=== PATIENT | male | born 1970 | race Caucasian/White ===

== ENCOUNTER 2017-09-13 09:52 | Inpatient (IN) | payer MEDICAID ==
[2017-09-13] VITALS (42 sets, daily range): BP systolic 125–204; BP diastolic 63–126
[~2017-09-13] VITALS: Ht 175.3 cm; Wt 66.3 kg
[2017-09-13] MEDS ORDERED: MIDAZOLAM HCL 2 MG/2 ML VIAL IV STA (11:22)
[2017-09-13] MEDS ORDERED: KETOROLAC TROMETHAMINE 30 MG/ML VIAL IV STA (11:22)
[2017-09-13] MEDS ORDERED: MULTIVITAMINS- 12 INJECTION 10 ML, FOLIC ACID MDV 5 MG, THIAMINE HCL INJ 100 MG in SODI... IV STA (12:08)
[2017-09-13] MEDS: MORPHINE SULFATE 2 MG/ML SYR IV PRN ×2 (13:26→19:55)
[2017-09-13] MEDS: NICOTINE 21 MG/EA PATCH TOP SCH (15:04)
[2017-09-13] MEDS: CLONIDINE HCL 0.1 MG TAB PO SCH ×2 (15:04→22:03)
[2017-09-13] MEDS: MULTIVITAMINS- 12 INJECTION 10 ML, FOLIC ACID MDV 5 MG, THIAMINE HCL INJ 100 MG in SODI... IV SCH ×2 (19:15→20:53)
[2017-09-13 19:24] LABS: CLARITY,URINE SL CLOUDY (CLEAR); COLOR,URINE STRAW (YELLOW); LEUKOCYTE ESTERASE ,URINE NEGATIVE (NEGATIVE); NITRITE,URINE NEGATIVE (NEGATIVE); PROTEIN,URINE DIPSTICK 2+ (NEGATIVE)
[2017-09-13 19:25] LABS: AMPHETAMINES SCREEN,URINE NEGATIVE (NEGATIVE); BENZODIAZEPINES SCREEN,URINE NEGATIVE (NEGATIVE); BILIRUBIN,URINE 1+ (NEGATIVE); KETONES,URINE 2+ (NEGATIVE); PHENCYCLIDINE SCREEN,URINE NEGATIVE (NEGATIVE); URINE UROBILINOGEN 0.2 mg/dL (0.2 - 1)
[2017-09-13 19:49] LABS: BACTERIA,URINE FEW /HPF; EPITHELIAL CELLS,URINE FEW /LPF; RBC,URINE >50 /HPF (0-5)
[2017-09-13 19:50] LABS: MUCUS,URINE MANY (RARE)
[2017-09-13] MEDS: MIDAZOLAM HCL 2 MG/2 ML VIAL IV PRN (22:03)
[2017-09-14] VITALS (38 sets, daily range): BP systolic 111–174; BP diastolic 73–124
[2017-09-14] MEDS: MORPHINE SULFATE 2 MG/ML SYR IV PRN (02:05)
[2017-09-14] MEDS: MULTIVITAMINS- 12 INJECTION 10 ML, FOLIC ACID MDV 5 MG, THIAMINE HCL INJ 100 MG in SODI... IV SCH ×3 (03:13→17:11)
[2017-09-14 04:28] LABS: BASOPHILS % 0.3 % (0.0-1.0); EOSINOPHILS # (AUTO) 0.1 (0.0-0.4); HEMATOCRIT 34.2 % (38.2-49.6); HEMOGLOBIN 12.2 g/dL (14.0-18.0); LYMPHOCYTES # (AUTO) 0.8 (1.0-3.2); LYMPHOCYTES % 12.4 % (18.0-39.1); MEAN CORPUSCULAR HEMOGLOBIN 36.6 pg (28-32); MEAN CORPUSCULAR HGB CONC 35.7 g/dL (31-35); MEAN CORPUSCULAR VOLUME 102.7 fL (81-99); MONOCYTES # (AUTO) 0.5 (0.2-0.8); MONOCYTES % 7.5 % (4.4-11.3); NEUTROPHILS # (AUTO) 5.2 (2.1-6.9); NEUTROPHILS % 78.5 % (38.7-80.0); PLATELET COUNT 65 x10e3/uL (140-360); RED BLOOD COUNT 3.33 x10e6/uL (4.3-5.7); RED CELL DISTRIBUTION WIDTH 13.2 % (11.7-14.4)
[2017-09-14 04:48] LABS: ALANINE AMINOTRANSFERASE 56 IU/L (0-55); ALBUMIN 3.9 g/dL (3.5-5.0); ALBUMIN/GLOBULIN RATIO 1.3 (0.8-2.0); ALKALINE PHOSPHATASE 108 IU/L (40-150); ANION GAP 14.5 mmol/L (8-16); BLOOD UREA NITROGEN 6 mg/dL (7-26); BUN/CREATININE RATIO 9 (6-25); CARBON DIOXIDE 25 mmol/L (22-29); CHLORIDE 96 mmol/L (98-107); CREATININE, SERUM 0.66 mg/dL (0.72-1.25); EST GLOMERULAR FILTRATION RATE > 60 ML/MIN (60-); GLUCOSE 96 mg/dL (74-118); MAGNESIUM 2.1 MG/DL (1.3-2.1); PHOSPHORUS 1.8 MG/DL (2.3-4.7); POTASSIUM 3.5 mmol/L (3.5-5.1); SODIUM 132 mmol/L (136-145)
[2017-09-14] MEDS: CLONIDINE HCL 0.1 MG TAB PO SCH ×3 (06:28→21:54)
[2017-09-14] MEDS: MIDAZOLAM HCL 2 MG/2 ML VIAL IV PRN ×3 (09:00→19:07)
[2017-09-14] MEDS: CHLORDIAZEPOXIDE HCL 25 MG CAP PO PRN ×2 (10:40→17:36)
[2017-09-14] MEDS: NICOTINE 21 MG/EA PATCH TOP SCH (16:48)
[2017-09-14 18:08] LABS: FREE THYROXINE INDEX 1.3785 (1.4-3.8); THYROID STIMULATING HORMONE 2.47 uIU/mL (0.350-4.940)
--- NOTE | 2017-09-14 18:58 | Consultation ---
DATE OF CONSULTATION: September 14, 2017 NEUROLOGICAL CONSULTATION HISTORY OF PRESENT ILLNESS: At present, Mr. León is encephalopathic. History is obtained partially from the patient and review of the electronic medical records. Mr. León was admitted to the intensive care unit at [facility] from a [facility] on September 13, 2017, with symptoms of alcohol withdrawal. According to the electronic medical records, the patient was brought in to the [facility] by his best friend, Oscar, who reported the patient was "in DTs." Mr. León had recently consumed some quantity of alcohol for a prolonged period of time followed by abrupt cessation of alcohol consumption. While in the [facility], the patient was witnessed to have a generalized tonic clonic seizure. This prompted his admission to the intensive care unit at [facility] for further evaluation and treatment of his symptoms. While in the intensive care unit at [facility], Mr. León experienced an additional generalized tonic clonic seizure. Mr. León does not endorse a history of febrile seizures as a child. There is no known family history of seizure disorders. Mr. León does not endorse prior head trauma or central nervous system infection (i.e. meningitis, encephalitis). However, the patient does report experiencing seizures previously as a result of alcohol withdrawal. REVIEW OF SYSTEMS: Seizures. Otherwise, a 12 point review of systems is negative. PAST MEDICAL HISTORY: Substance abuse (alcohol). PAST SURGICAL HISTORY: None. PAST HOSPITALIZATIONS: Multiple prior hospitalizations for alcohol withdrawal. FAMILY HISTORY: Diabetes mellitus and multiple sclerosis. SOCIAL HISTORY: Mr. León is single. At present, he is unemployed. 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 The patient does endorse tobacco use without quantification. The patient does endorse alcohol use without quantification. Mr. León does not report current or prior recreational drug use. HOME MEDICATIONS: None. ALLERGIES: NO KNOWN DRUG ALLERGIES, NO KNOWN FOOD ALLERGIES, NO KNOWN ALLERGIES TO LATEX. NO KNOWN ALLERGIES TO IODINE OR OTHER CONTRAST MATERIALS. MR. LEÓN DOES REPORT AN ALLERGY TO BEES. PHYSICAL EXAMINATION: VITAL SIGNS: Height 69 inches, weight 130 pounds, BMI 19.2 kg per meter squared. Blood pressure 156/99 mmHg, pulse 93 beats per minute, respiratory rate 20 breaths per minute, oxygen saturation 97% on room air. GENERAL: The patient is awake and alert, appears tremulous. HEENT: Normocephalic, atraumatic. Pupils are equal, round, and reactive to light. Moist mucous membranes. NECK: Supple. No appreciable thyromegaly. No appreciable carotid bruits. CARDIOVASCULAR: S1, S2, regular rate and rhythm. No murmurs, rubs, or gallops. RESPIRATORY: Clear to auscultation bilaterally. No wheezes, rhonchi, or rales. EXTREMITIES: The skin is warm and dry. No clubbing, cyanosis, or edema. The posterior tibial and dorsalis pedis pulses are 2+ and symmetric. SKIN: Multiple ecchymoses and abrasions over the bilateral legs. NEUROLOGIC Memory/Attention: The patient is awake and alert, oriented to person, place (city only), time (month only), and situation. Cranial Nerves: Cranial nerve 1--Not tested. Cranial nerve 2, 3, 4, and 6--Pupils are equal and round, react briskly to light (from 4 mm to 2 mm). Extraocular movements intact. No nystagmus. Cranial nerve 5--Sensation to light touch is intact in the bilateral V1 through V3 distributions. Strength of the temporalis and masseter muscles is within normal limits. Cranial nerve 7--The face is symmetric as are all facial movements. Strength is within normal limits. Cranial nerve 8--Hearing is intact to finger rub bilaterally. Cranial nerve 9, 10--The soft palate elevates equally and symmetrically. Cranial nerve 11--Normal strength of the bilateral sternocleidomastoid and trapezius muscles. Cranial nerve 12--The tongue protrudes midline and moves symmetrically from side to side. Strength: Bulk is normal. The patient moves all extremities equally and symmetrically. Tone is normal. DTRs: Deep tendon reflexes are 1+ and symmetric at the triceps, biceps, brachioradialis, patellas, and Achilles. Plantar responses are flexor bilaterally. Sensation: Sensation is grossly intact to light touch in both arms and both legs. Cerebellar: Unable to assess secondary to encephalopathy. Gait: Deferred. Speech: Spontaneous speech is mildly dysarthric without aphasia. Repetition is intact. Involuntary Movements: The patient fidgets throughout the encounter. Pronator Drift: As per motor exam. LABORATORY DATA: Sodium 132, potassium 3.5, chloride 96, carbon dioxide 25, anion gap 14.5, BUN 6, creatinine 0.66, estimated GFR greater than 60. BUN to creatinine ratio 9. Glucose 96, calcium 8.0, phosphorus 1.8, magnesium 2.1. Total bilirubin 1.4, AST 110, ALT 56, alkaline phosphatase 108. Total protein 6.8, albumin 3.9, globulin 2.9, albumin to globulin ratio 1.3. CBC with differential and platelets reveals a white blood cell count of 6.67 with 78.5% neutrophils, 12.4% lymphocytes, 7.5% monocytes, 1.0% eosinophils and 0.3% basophils. The hemoglobin and hematocrit are 12.2 and 34.2, respectively. The platelet count is 65. A urinalysis is significant for a specific gravity of 1.030, 2+ protein, 3+ glucose, 2+ ketones, 4+ blood, 1+ bilirubin, greater than 50 red blood cells, 11 to 20 white blood cells, few urine bacteria, fine granular casts 1 to 5, and urine mucus many. A urine drug screen was positive for opiates. Ethyl alcohol level was less than 10.0. ASSESSMENT AND PLAN: Mr. León is a 47-year-old man with past medical history significant for alcohol abuse, witnessed to have 2 to 3 generalized tonic clonic seizures in the setting of alcohol withdrawal. At present, the patient is encephalopathic. Otherwise his neurological examination is nonfocal. His laboratory data and other diagnostic studies have been reviewed and are documented as follows. RECOMMENDATIONS: 1. CT of the brain without contrast. An MRI of the brain without contrast is preferable to evaluate for structural anomalies predisposing the patient towards seizures. However, it is doubtful Mr. León would tolerate this study. 2. A routine EEG will be performed. 3. Routine blood work will be ordered to evaluate for other possible causes of encephalopathy. 4. Defer treatment of the remaining medical comorbidities to the primary and other services following the patient. Thank you for this consultation. I will continue to follow this patient while he remains in the hospital. Time spent: 70 minutes. Job#: [id number] EV MTDD
[2017-09-14] MEDS: ONDANSETRON HCL INJ 2 MG/ML VIAL IV PRN (19:07)
[2017-09-14] MEDS: MORPHINE SULFATE INJ 4 MG/ML INJ IV PRN ×2 (19:07→22:59)
--- NOTE | 2017-09-14 20:38 | Diagnostic Imaging Report ---
Examination: CT head without contrast Clinical Indication: Seizures. Technique: Transaxial noncontrast images from the skull base through the vertex were obtained. Sagittal and coronal reformatted images were done. Comparison: None. Findings: Scalp: No abnormalities. Bones: Intact. No fractures. No blastic or lytic lesions. Brain sulci: Mild volume loss for patient's age particularly of the bilateral cerebellar hemispheres. Ventricles: No hydrocephalus. Extra-axial space: No abnormalities. Parenchyma: A chronic lacunar infarct versus dilated perivascular space of the inferior left putamen. There are mild confluent areas of low-attenuation within subcortical and periventricular white matter, nonspecific, but could represent microvascular ischemic disease. No masses, hemorrhage, or acute or chronic cortical based vascular insults. Suprasellar region: No abnormalities. Craniocervical junction: The foramen magnum is patent. No Chiari one malformation. Impression: 1. No acute intracranial finding. 2. Mild chronic microvascular ischemic change and mild volume of the brain, specifically of the bilateral cerebellum, which can be seen in chronic alcohol intake. 3. A chronic lacunar infarct versus dilated perivascular space of the inferior left putamen. Signed by: Dr. Monika Coronado M.D. on 09/14/2017 8:35 PM
[2017-09-14] MEDS: LORAZEPAM INJ 2 MG/ML VIAL IV PRN ×2 (21:54→23:40)
[2017-09-15] VITALS (62 sets, daily range): BP systolic 106–186; BP diastolic 74–172
[2017-09-15] MEDS: MULTIVITAMINS- 12 INJECTION 10 ML, FOLIC ACID MDV 5 MG, THIAMINE HCL INJ 100 MG in SODI... IV SCH ×4 (00:53→21:36)
[2017-09-15] MEDS: LORAZEPAM INJ 2 MG/ML VIAL IV PRN ×7 (01:43→19:45)
[2017-09-15] MEDS: MORPHINE SULFATE INJ 4 MG/ML INJ IV PRN ×5 (03:33→23:50)
[2017-09-15 04:36] LABS: BASOPHILS % 0.3 % (0.0-1.0); EOSINOPHILS % 0.3 % (0.0-6.0); HEMOGLOBIN 11.3 g/dL (14.0-18.0); LYMPHOCYTES # (AUTO) 0.6 (1.0-3.2); MEAN CORPUSCULAR HEMOGLOBIN 36.7 pg (28-32); MEAN CORPUSCULAR HGB CONC 35.3 g/dL (31-35); MEAN CORPUSCULAR VOLUME 103.9 fL (81-99); MONOCYTES # (AUTO) 0.9 (0.2-0.8); MONOCYTES % 12.1 % (4.4-11.3); NEUTROPHILS % 78.8 % (38.7-80.0); PLATELET COUNT 75 x10e3/uL (140-360); RED BLOOD COUNT 3.08 x10e6/uL (4.3-5.7); RED CELL DISTRIBUTION WIDTH 13.2 % (11.7-14.4)
[2017-09-15 04:48] LABS: INR 1.11; PROTHROMBIN TIME 13.5 seconds (11.9-14.5)
[2017-09-15 04:49] LABS: PARTIAL THROMBOPLASTIN TIME 33.1 seconds (23.8-35.5)
[2017-09-15 04:55] LABS: ANION GAP 19.5 mmol/L (8-16); BLOOD UREA NITROGEN 5 mg/dL (7-26); BUN/CREATININE RATIO 7 (6-25); CALCIUM 8.3 mg/dL (8.4-10.2); CARBON DIOXIDE 21 mmol/L (22-29); CHLORIDE 103 mmol/L (98-107); CREATININE, SERUM 0.73 mg/dL (0.72-1.25); EST GLOMERULAR FILTRATION RATE > 60 ML/MIN (60-); GLUCOSE 95 mg/dL (74-118); POTASSIUM 3.5 mmol/L (3.5-5.1); SODIUM 140 mmol/L (136-145)
[2017-09-15] MEDS: CLONIDINE HCL 0.1 MG TAB PO SCH ×3 (06:16→21:36)
[2017-09-15] MEDS: CHLORDIAZEPOXIDE HCL 25 MG CAP PO SCH ×3 (06:35→17:25)
[2017-09-15] MEDS: METOPROLOL TARTRATE INJ 1 MG/ML VIAL IV PRN (08:20)
[2017-09-15] MEDS ORDERED: HALOPERIDOL LACTATE 5 MG/ML VIAL IM PRN (14:30)
[2017-09-15] MEDS ORDERED: CHLORDIAZEPOXIDE HCL 25 MG CAP PO PRN (14:30)
[2017-09-15] MEDS: NICOTINE 21 MG/EA PATCH TOP SCH (17:25)
[2017-09-15] MEDS: QUETIAPINE FUMARATE 25 MG TAB PO PRN (17:25)
[2017-09-15] MEDS: BALSAM PERU/CASTOR OIL 60 GM OINT...G. TP SCH (21:36)
[2017-09-16] VITALS (34 sets, daily range): BP systolic 120–179; BP diastolic 79–118
[2017-09-16] MEDS: MULTIVITAMINS- 12 INJECTION 10 ML, FOLIC ACID MDV 5 MG, THIAMINE HCL INJ 100 MG in SODI... IV SCH ×4 (02:49→21:35)
[2017-09-16] MEDS: LORAZEPAM INJ 2 MG/ML VIAL IV PRN (03:50)
[2017-09-16] MEDS: MORPHINE SULFATE INJ 4 MG/ML INJ IV PRN ×2 (03:50→21:54)
[2017-09-16 04:36] LABS: BASOPHILS % 0.5 % (0.0-1.0); EOSINOPHILS # (AUTO) 0.2 (0.0-0.4); EOSINOPHILS % 2.9 % (0.0-6.0); HEMATOCRIT 31.9 % (38.2-49.6); HEMOGLOBIN 10.8 g/dL (14.0-18.0); LYMPHOCYTES # (AUTO) 0.9 (1.0-3.2); LYMPHOCYTES % 16.5 % (18.0-39.1); MEAN CORPUSCULAR HEMOGLOBIN 36.6 pg (28-32); MEAN CORPUSCULAR HGB CONC 33.9 g/dL (31-35); MEAN CORPUSCULAR VOLUME 108.1 fL (81-99); MONOCYTES # (AUTO) 0.8 (0.2-0.8); MONOCYTES % 13.6 % (4.4-11.3); NEUTROPHILS # (AUTO) 3.6 (2.1-6.9); NEUTROPHILS % 66.1 % (38.7-80.0); PLATELET COUNT 83 x10e3/uL (140-360); RED BLOOD COUNT 2.95 x10e6/uL (4.3-5.7); RED CELL DISTRIBUTION WIDTH 13.3 % (11.7-14.4)
[2017-09-16 05:03] LABS: ALANINE AMINOTRANSFERASE 63 IU/L (0-55); ALBUMIN 3.6 g/dL (3.5-5.0); ALBUMIN/GLOBULIN RATIO 1.4 (0.8-2.0); ALKALINE PHOSPHATASE 82 IU/L (40-150); ANION GAP 25.7 mmol/L (8-16); BLOOD UREA NITROGEN 5 mg/dL (7-26); BUN/CREATININE RATIO 7 (6-25); CALCIUM 7.8 mg/dL (8.4-10.2); CARBON DIOXIDE 12 mmol/L (22-29); CHLORIDE 106 mmol/L (98-107); CREATININE, SERUM 0.75 mg/dL (0.72-1.25); EST GLOMERULAR FILTRATION RATE > 60 ML/MIN (60-); GLUCOSE 83 mg/dL (74-118); SODIUM 141 mmol/L (136-145)
[2017-09-16 05:13] LABS: POTASSIUM 2.7 mmol/L (3.5-5.1)
[2017-09-16] MEDS: CHLORDIAZEPOXIDE HCL 25 MG CAP PO SCH ×5 (05:35→22:03)
[2017-09-16] MEDS: CLONIDINE HCL 0.1 MG TAB PO SCH ×3 (05:35→21:49)
[2017-09-16] MEDS ORDERED: POTASSIUM CHLORIDE 20 MEQ TAB CR PO STA (05:53)
[2017-09-16] MEDS: POTASSIUM CHLORIDE 20 MEQ TAB CR PO SCH ×5 (06:12→23:06)
[2017-09-16] MEDS ORDERED: HYDROCHLOROTHIAZIDE 25 MG TAB ONE (07:24)
[2017-09-16] MEDS ORDERED: LOSARTAN POTASSIUM 100 MG TAB ONE (07:24)
[2017-09-16] MEDS: QUETIAPINE FUMARATE 25 MG TAB PO PRN (08:24)
--- NOTE | 2017-09-16 11:35 | Consultation ---
DATE OF CONSULTATION: September 15, 2017 PSYCHIATRIC CONSULTATION REASON FOR CONSULTATION: To evaluate the patient's alcohol withdrawal. HISTORY OF PRESENT ILLNESS: The patient is a 47-year-old male admitted to the hospital for alcohol intoxication and delirium. Psychiatric consultation is called to evaluate the patient and withdrawal. Per the medical record, the patient was admitted to the hospital with alcohol withdrawal. He suffered a seizure witnessed in the ER. Neurology is currently following the patient. Record does not show how much he has been drinking. No past psychiatric history is shown as well. On current evaluation, the patient is found to be in the ICU. He is in restraint. He is sleeping but arousable. He is confused. Does not know where he is but oriented to self. He has been combative. He states he drinks every day beer but unable to state the amount. The patient is unable to answer any other questions. As per nursing staff, the patient has been very agitated and combative, chasing staff. He was required to be placed in restraints. He again had a seizure while hospitalized. He has been getting p.r.n. Ativan IV and Librium scheduled. PAST PSYCHIATRIC HISTORY: Alcohol abuse, but unknown amount. Unknown if the patient has a history of psychiatric illness. FAMILY HISTORY: Unknown. SOCIAL HISTORY: Unknown. MENTAL STATUS EXAMINATION: The patient is a middle-aged, male. He is sleeping, but arousable. He is confused, agitated and in restraints. He is not able to answer questions, and assessment is limited. CURRENT MEDICATIONS 1. Clonidine. 2. Librium 25 mg p.o. q.6 h. scheduled. 3. Multivitamin. 4. Morphine p.r.n. IV. 5. Ativan p.r.n. IV. 6. Metoprolol. 7. Ondansetron. 8. Nicotine. CURRENT LABS: WBC 7.59, RBC 3.08, hemoglobin 11.3, hematocrit 32, platelets 75. Sodium 140, potassium 3.5, chloride 103, CO2 21, BUN 5, creatinine 0.73, AST 157, ALT 63. ASSESSMENT: Unspecified psychosis; alcohol dependency/withdrawal. PLAN 1. Continue Librium 25 mg p.o. q.6 h. scheduled. 2. Add Librium 25 mg p.o. q.6 h. p.r.n. for DT. 3. Continue Ativan 2 mg IV q.2 h. p.r.n. 4. Add Seroquel p.r.n. p.o. 5. Add Haldol p.r.n. IM. 6. Monitor for agitation and withdrawal. 7. Discussed with nursing staff. Thank you for this consultation. Dictated by: CHELY Dao Job#: [id number]
[2017-09-16] MEDS: BALSAM PERU/CASTOR OIL 60 GM OINT...G. TP SCH (17:00)
[2017-09-16] MEDS: NICOTINE 21 MG/EA PATCH TOP SCH (17:00)
--- NOTE | 2017-09-16 18:29 | Electroencephalogram ---
DATE OF STUDY: September 16, 2017 PROCEDURE: Electroencephalogram. REQUESTING PHYSICIAN: Dr. Lazara Larose PATIENT HISTORY: This 47-year-old man with history of alcohol abuse and seizures is having an EEG for evaluation of epileptiform activity. The patient is taking the following medications that might affect the EEG: Morphine, Lorazepam, chlordiazepoxide. TECHNIQUE: This is a routine, portable EEG, recorded digitally, using the international 10/20 electrode placement system, and done in the inpatient setting with the patient awake and drowsy. The EEG is technically limited because of muscle and electrical artifact. DESCRIPTION: Well organized, well sustained 6-7 Hz activity is best seen symmetrically in the posterior head regions and 13-14 Hz activity is intermixed, probably secondary to medication affect. No focal or epileptiform activity is recorded. Sleep is not recorded. Photic stimulation does not produce a driving response. Hyperventilation does not produce slowing. INTERPRETATION: This EEG is abnormal due to diffuse slowing of background electrocortical activity compatible with a mild generalized encephalopathy. No epileptiform discharges are seen. Clinical correlation is recommended. Job#: [id number] MTDFuentes
[2017-09-16] MEDS: ONDANSETRON HCL INJ 2 MG/ML VIAL IV PRN (21:54)
[2017-09-17] VITALS (56 sets, daily range): BP systolic 129–198; BP diastolic 77–121
[2017-09-17] MEDS: ONDANSETRON HCL INJ 2 MG/ML VIAL IV PRN ×2 (03:09→20:15)
[2017-09-17] MEDS: MORPHINE SULFATE INJ 4 MG/ML INJ IV PRN ×3 (03:09→20:15)
[2017-09-17] MEDS: CHLORDIAZEPOXIDE HCL 25 MG CAP PO SCH ×3 (05:46→21:07)
[2017-09-17] MEDS: MULTIVITAMINS- 12 INJECTION 10 ML, FOLIC ACID MDV 5 MG, THIAMINE HCL INJ 100 MG in SODI... IV SCH ×4 (05:46→23:46)
[2017-09-17] MEDS: CLONIDINE HCL 0.1 MG TAB PO SCH ×3 (05:46→21:07)
[2017-09-17] MEDS: LORAZEPAM INJ 2 MG/ML VIAL IV PRN (05:55)
[2017-09-17 08:55] LABS: BASOPHILS % 0.8 % (0.0-1.0); EOSINOPHILS # (AUTO) 0.2 (0.0-0.4); EOSINOPHILS % 2.9 % (0.0-6.0); HEMATOCRIT 30.6 % (38.2-49.6); HEMOGLOBIN 10.8 g/dL (14.0-18.0); LYMPHOCYTES # (AUTO) 0.6 (1.0-3.2); LYMPHOCYTES % 11.6 % (18.0-39.1); MEAN CORPUSCULAR HEMOGLOBIN 36.7 pg (28-32); MEAN CORPUSCULAR HGB CONC 35.3 g/dL (31-35); MEAN CORPUSCULAR VOLUME 104.1 fL (81-99); MONOCYTES # (AUTO) 0.7 (0.2-0.8); MONOCYTES % 13.8 % (4.4-11.3); NEUTROPHILS # (AUTO) 3.6 (2.1-6.9); NEUTROPHILS % 70.7 % (38.7-80.0); PLATELET COUNT 82 x10e3/uL (140-360); RED BLOOD COUNT 2.94 x10e6/uL (4.3-5.7); RED CELL DISTRIBUTION WIDTH 13.5 % (11.7-14.4)
[2017-09-17 09:13] LABS: ANION GAP 16.3 mmol/L (8-16); BLOOD UREA NITROGEN < 5 mg/dL (7-26); CALCIUM 8.4 mg/dL (8.4-10.2); CARBON DIOXIDE 21 mmol/L (22-29); CHLORIDE 104 mmol/L (98-107); CREATININE, SERUM 0.73 mg/dL (0.72-1.25); EST GLOMERULAR FILTRATION RATE > 60 ML/MIN (60-); GLUCOSE 197 mg/dL (74-118); POTASSIUM 4.3 mmol/L (3.5-5.1); SODIUM 137 mmol/L (136-145)
[2017-09-17 09:15] LABS: BUN/CREATININE RATIO 7 (6-25)
[2017-09-17] MEDS: BALSAM PERU/CASTOR OIL 60 GM OINT...G. TP SCH ×2 (09:24→14:15)
--- NOTE | 2017-09-17 09:39 | Progress Note ---
DATE: September 16, 2017 PSYCHIATRIC PROGRESS NOTE The patient was evaluated and events noted. Dr. Leyva came and saw the patient. The patient is in the room in the ICU. He is doing better. He is alert, awake and oriented to situation. He is calm. He is not in restraints. He admits to drinking alcohol. He denies any depression. He denies any suicidal ideation. He denies any hallucinations. He is getting an EEG. He is receiving medications and denies any side effects. ASSESSMENT: Unspecified psychosis/alcohol withdrawal. PLAN: Taper Librium from 25 mg p.o. q.6 h. to q.8 h. scheduled. Continue with p.r.n. Librium. Continue with Haldol p.r.n. IM. Continue with Ativan p.r.n. IV. Continue with Seroquel p.r.n. p.o. Supportive therapy. DICTATED BY CHELY LOOMIS Job#: [id number]
[2017-09-17] MEDS: METOPROLOL TARTRATE INJ 1 MG/ML VIAL IV PRN ×2 (09:41→17:30)
[2017-09-17] MEDS: QUETIAPINE FUMARATE 25 MG TAB PO PRN (14:22)
[2017-09-17] MEDS: NICOTINE 21 MG/EA PATCH TOP SCH (17:00)
[2017-09-18] VITALS (21 sets, daily range): BP systolic 121–218; BP diastolic 52–101
[2017-09-18] MEDS: QUETIAPINE FUMARATE 25 MG TAB PO PRN (01:29)
[2017-09-18] MEDS: CHLORDIAZEPOXIDE HCL 25 MG CAP PO SCH ×3 (05:47→21:41)
[2017-09-18] MEDS: CLONIDINE HCL 0.1 MG TAB PO SCH ×3 (05:47→21:41)
[2017-09-18] MEDS: MULTIVITAMINS- 12 INJECTION 10 ML, FOLIC ACID MDV 5 MG, THIAMINE HCL INJ 100 MG in SODI... IV SCH (07:29)
[2017-09-18] MEDS: BALSAM PERU/CASTOR OIL 60 GM OINT...G. TP SCH ×2 (09:53→15:26)
[2017-09-18] MEDS: MORPHINE SULFATE INJ 4 MG/ML INJ IV PRN ×2 (10:14→15:06)
[2017-09-18] MEDS: LORAZEPAM INJ 2 MG/ML VIAL IV PRN (10:33)
[2017-09-18] MEDS: NICOTINE 21 MG/EA PATCH TOP SCH (16:26)
[2017-09-19] VITALS (7 sets, daily range): BP systolic 127–170; BP diastolic 67–101
[2017-09-19] MEDS: CHLORDIAZEPOXIDE HCL 25 MG CAP PO SCH ×3 (06:00→21:36)
[2017-09-19] MEDS: CLONIDINE HCL 0.1 MG TAB PO SCH ×3 (06:00→21:36)
[2017-09-19] MEDS: LISINOPRIL 10 MG TAB PO SCH (09:00)
[2017-09-19] MEDS: MELOXICAM 7.5 MG TAB PO SCH (09:00)
[2017-09-19] MEDS: BALSAM PERU/CASTOR OIL 60 GM OINT...G. TP SCH ×2 (09:00→17:00)
[2017-09-19] MEDS: NICOTINE 21 MG/EA PATCH TOP SCH (17:00)
--- NOTE | 2017-09-19 17:30 | Progress Note ---
DATE: September 19, 2017 INTERNAL MEDICINE PROGRESS NOTE SUBJECTIVE: Patient is complaining of cramps and pain everywhere. PHYSICAL EXAMINATION VITAL SIGNS: Blood pressure 158/101. Temperature 97.6. Heart rate 86 per minute. Respiratory rate 20 per minute. Oxygen saturation 96%. HEART: Regular rhythm. Normal S1, S2 sounds. LUNGS: Clear bilaterally. ABDOMEN: Soft. EXTREMITIES: No evidence of cyanosis, edema or trauma. LABS: On the BMP, sodium 137, potassium 4.3, chloride 104, CO2 21, BUN 5, creatinine 0.73. Glucose 187. On the CBC, white blood count 5.09, hemoglobin 10.8, hematocrit 30.6, platelet count 82,000. PT 13.5, INR 1.11, PTT 33.1. AST 157, ALT 63, total bilirubin 1.4, alkaline phosphatase 82. FINAL IMPRESSION 1. Alcohol withdrawal with delirium tremens. 2. Alcoholic hepatitis. 3. Hypertension. PLAN OF TREATMENT 1. Continue Zofran 4 mg IV q.4 h. as needed. 2. NicoDerm patch 21 mg once a day. 3. Clonidine 0.1 mg q.8 h. 4. Lorazepam 2 mg p.o. q.12 h. as needed. 5. Librium 25 mg q.6 h. 6. Meloxicam 15 mg daily. 7. Metoprolol 2 mg q.6 h. IV as needed. 1. Balsam Cheo castor oil 1 application twice a day. 2. Morphine 4 mg IV q.4 h. as needed, which we are going to discontinue. 3. He has Haldol 2 mg IV q.4-6 h. as needed. 4. The Librium will be weaned down to 25 mg q.8 h. around the clock. 5. Continue Seroquel 25 mg q.6 h. as needed. 6. We are going to increase the lisinopril to 20 mg daily. Job#: [id number]
[2017-09-19 17:34] LABS: FERRITIN 426.94 ng/mL (21.81-274.66)
[2017-09-19] MEDS: TRAMADOL HCL 50 MG TAB PO PRN ×2 (20:30→21:34)
[2017-09-20] VITALS (7 sets, daily range): BP systolic 120–165; BP diastolic 73–92
[2017-09-20 06:27] LABS: ALANINE AMINOTRANSFERASE 55 IU/L (0-55); ALBUMIN 3.1 g/dL (3.5-5.0); ALBUMIN/GLOBULIN RATIO 1.1 (0.8-2.0); ALKALINE PHOSPHATASE 72 IU/L (40-150); ANION GAP 11.9 mmol/L (8-16); BLOOD UREA NITROGEN 5 mg/dL (7-26); BUN/CREATININE RATIO 8 (6-25); CALCIUM 8.9 mg/dL (8.4-10.2); CARBON DIOXIDE 31 mmol/L (22-29); CHLORIDE 101 mmol/L (98-107); CREATININE, SERUM 0.59 mg/dL (0.72-1.25); EST GLOMERULAR FILTRATION RATE > 60 ML/MIN (60-); GLUCOSE 146 mg/dL (74-118); SODIUM 141 mmol/L (136-145)
[2017-09-20] MEDS: CHLORDIAZEPOXIDE HCL 25 MG CAP PO SCH ×3 (06:33→21:36)
[2017-09-20] MEDS: CLONIDINE HCL 0.1 MG TAB PO SCH ×3 (06:33→21:36)
[2017-09-20 06:48] LABS: POTASSIUM 2.9 mmol/L (3.5-5.1)
[2017-09-20] MEDS ORDERED: POTASSIUM CHLORIDE 20 MEQ TAB CR PO STA (07:08)
[2017-09-20] MEDS: LISINOPRIL 10 MG TAB PO SCH (08:16)
[2017-09-20] MEDS: MELOXICAM 7.5 MG TAB PO SCH (08:16)
[2017-09-20] MEDS: BALSAM PERU/CASTOR OIL 60 GM OINT...G. TP SCH ×2 (09:00→17:17)
--- NOTE | 2017-09-20 16:07 | Progress Note ---
DATE: September 20, 2017 INTERNAL MEDICINE PROGRESS NOTE SUBJECTIVE: Patient is complaining he was having blood in the urine before, not right now. PHYSICAL EXAMINATION VITAL SIGNS: Blood pressure 131/73. Temperature 99.3. Heart rate 87 per minute. Respiratory rate is 20 per minute. Oxygen saturation 99%. HEART: Regular rhythm. Normal S1, S2 sounds. LUNGS: Clear bilaterally. ABDOMEN: Soft. LABS: On the BMP, sodium 141, potassium 2.9, chloride 101, CO2 31, BUN 5, creatinine 0.59, and glucose 146. On the CBC, white blood count 5.09, hemoglobin 10.8, hematocrit 30.6, platelet count 92,000. PT 13.5, INR 1.11, PTT 33.1. AST 71, total bilirubin 0.6, ALT 56 and alkaline phosphatase 72. FINAL IMPRESSION 1. Alcohol abuse with alcohol withdrawal. 2. Alcoholic hepatitis. 3. Hypertension. 4. Delirium tremens, which are resolved. 5. Hematuria, which seems to be resolving. PLAN OF TREATMENT: Urology consult with Dr. Snider. Continue Zofran 4 mg IV q.4 h. as needed, NicoDerm patch 21 mg once a day, clonidine 0.1 mg q.8 h. as needed, lorazepam 2 mg q.12 h. as needed, Librium 25 mg q.8 h. down from q.6 h., metoprolol 2 mg IV q.6 h. as needed for tachycardia, Balsam Cheo castor oil twice a day, Tramadol 50 mg q.6 h. as needed, Haldol 2 mg IV q.6 h. as needed for agitation, Seroquel 25 mg q.6 h., and lisinopril 10 mg daily. We are going to continue with current medication regimen. Job#: [id number]
[2017-09-20] MEDS: NICOTINE 21 MG/EA PATCH TOP SCH (17:17)
[2017-09-20] MEDS: TRAMADOL HCL 50 MG TAB PO PRN (18:14)
[2017-09-21] VITALS (7 sets, daily range): BP systolic 131–182; BP diastolic 72–97
[2017-09-21 04:59] LABS: ANION GAP 12.3 mmol/L (8-16); BLOOD UREA NITROGEN 6 mg/dL (7-26); BUN/CREATININE RATIO 9 (6-25); CALCIUM 9.3 mg/dL (8.4-10.2); CARBON DIOXIDE 31 mmol/L (22-29); CHLORIDE 99 mmol/L (98-107); CREATININE, SERUM 0.67 mg/dL (0.72-1.25); EST GLOMERULAR FILTRATION RATE > 60 ML/MIN (60-); GLUCOSE 173 mg/dL (74-118); POTASSIUM 4.3 mmol/L (3.5-5.1); SODIUM 138 mmol/L (136-145)
[2017-09-21] MEDS: CHLORDIAZEPOXIDE HCL 25 MG CAP PO SCH ×3 (06:04→22:18)
[2017-09-21] MEDS: CLONIDINE HCL 0.1 MG TAB PO SCH ×3 (06:04→22:18)
[2017-09-21] MEDS: LISINOPRIL 10 MG TAB PO SCH (09:00)
[2017-09-21] MEDS: BALSAM PERU/CASTOR OIL 60 GM OINT...G. TP SCH ×2 (09:00→17:00)
[2017-09-21] MEDS: MELOXICAM 7.5 MG TAB PO SCH (09:00)
[2017-09-21] MEDS: FOLIC ACID 1 MG TAB PO SCH (10:45)
[2017-09-21] MEDS ORDERED: THIAMINE HCL INJ 100 MG/ML 2ML VIAL IV ONE ×2 (10:45→11:00)
[2017-09-21] MEDS: THIAMINE HCL INJ 100 MG in SODIUM CHLORIDE 0.9% 50ML 50 ML IV SCH (10:49)
[2017-09-21] MEDS ORDERED: LACTULOSE SYRUP 20 GM/30 ML UDC PO PRN (11:00)
[2017-09-21] MEDS ORDERED: MAGNESIUM SULFATE 2GM/50ML 50 ML IV ONE (11:00)
[2017-09-21] MEDS ORDERED: SODIUM CHLORIDE 0.9% 50ML 50 ML ONE ×2 (14:27→23:02)
[2017-09-21] MEDS ORDERED: MAGNESIUM SULFATE 2GM/50ML 50 ML IV SCH (14:30)
--- NOTE | 2017-09-21 15:52 | Diagnostic Imaging Report ---
PROCEDURE:US LIVER COMPARISON:None. INDICATIONS:alcoholic liver cirrhosis TECHNIQUE: Manzo-scale and color doppler transverse and longitudinal images of the right upper quadrant of the abdomen were obtained. FINDINGS: Liver: 16 cm in right mid-clavicular line. Increased echogenicity. No masses. Main portal vein: 0.8 cm Gallbladder: No wall thickening. No cholelithiasis. Common Bile Duct: 0.4 cm Sonographic Jordan's sign: Negative Right kidney: 11 cm. Normal echogenicity. No hydronephrosis. 1.4 x 1.2 x 1.3 cm echogenic lesion in the lateral midpole. No internal flow on color Doppler. Pancreas: The visualized portions are unremarkable. Inferior vena cava: Patent Aorta: Within normal limits Ascites: None in the right upper quadrant of the abdomen. CONCLUSION: Hepatic steatosis. 1.4 cm echogenic right renal midpole lesion, may represent an angiomyolipoma versus a complex cyst. Recommend nonurgent renal mass protocol CT or MRI for better characterization. Dictated by: Roshan Chang M.D. on 09/21/2017 at 15:57 Electronically approved by: Roshan Chang M.D. on 09/21/2017 at 15:57
[2017-09-21] MEDS: NICOTINE 21 MG/EA PATCH TOP SCH (17:00)
--- NOTE | 2017-09-21 18:21 | Progress Note ---
DATE: September 18, 2017 PSYCHIATRIC PROGRESS NOTE Patient is alert, awake and oriented to situation. He has been transferred from ICU to a medical floor. He is not confused. He is calm, pleasant, cooperative. He has been having some depression but does not want any psych medication for depression at this time. He is still getting p.r.n. Ativan and Librium p.r.n. p.o. Today he denies any hallucination, no tremors or suicidal ideation. He denies any issue with sleep. He denies any side effects of medication. ASSESSMENT: Unspecified psychosis/alcohol withdrawal . PLAN 1. Continue with Librium 25 mg p.o. q.8 h. schedule. 2. Continue Ativan 2 mg IV q.2 h. p.r.n. 3. Continue with Librium p.r.n. p.o. 4. Continue Seroquel 25 mg p.o. q.6 h. p.r.n. 5. Continue with Haldol p.r.n. IM. 6. Supportive therapy. 7. Discussed with nursing staff. Dictated by: CHELY Dao Job#: [id number] EV
--- NOTE | 2017-09-21 20:00 | Consultation ---
DATE OF CONSULTATION: September 21, 2017 UROLOGY CONSULTATION REASON FOR CONSULTATION: Hematuria. HISTORY OF PRESENT ILLNESS: Jamey Trujillo is a 47-year-old man with the previous history of having had right undescended testicle and he is status post a right orchiopexy. The patient also looked like he has hypospadias. He reports having had some sort of surgery on his penile meatus and he is not sure what was done and why. The patient had no urinary complaints and has not seen a urologist in many years, has not had any urolithiasis, urinary tract infections or previous hematuria. The patient was admitted with alcoholic withdrawal and sequelae of alcoholism and was admitted to the ICU, where apparently he reports having had a Perkins catheter. He reports that he pulled it out with the balloon inflated. This of course resulted in hematuria as one would expect. Renal lesion was also found on liver ultrasound and urological consultation was sought. Urological consultation was ordered yesterday. Apparently, Dr. Barnes was never notified about this consult and our office was not notified today about the consult either. The patient reports his hematuria has since cleared. PAST MEDICAL HISTORY AND SURGICAL HISTORY 1. Urological surgery as above. 2. Alcoholism. CURRENT MEDICATIONS: Please refer to MAR. ALLERGIES: NONE KNOWN. SOCIAL HISTORY: The patient quit smoking upon being admitted to the hospital on September 13. He, prior to that, was drinking at least a 48-oz beer per day and in the past prior to drinking beer, he used to drink 1/2 bottle of hard liquor per day. 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 FAMILY HISTORY: Noncontributory to the active urological problems. REVIEW OF SYSTEMS: As consistent with the above history of present illness, past medical history and otherwise negative for all other systems. PHYSICAL EXAMINATION GENERAL: A healthy-appearing 47-year-old male lying in bed, in no apparent distress. VITALS: He is currently afebrile. Vital signs currently stable. ABDOMEN: Soft, nondistended, nontender without costovertebral angle tenderness. Kidneys are nonpalpable without hepatosplenomegaly. There was a right inguinal scar consistent with previous. GENITOURINARY: Testes descended bilaterally. Testes are bilaterally unremarkable. There seems to be a spermatocele associated with the right epididymis as well. The patient has a hypospadiac wide-mouthed meatus. For the remaining physical examination systems, please refer to the admission history and physical in the chart and the other doctor's notes. LABORATORY STUDIES: Patient's creatinine is 0.67. His hemoglobin is decreased at 10.8, his platelets are low at 82,000. Liver ultrasound revealed a 1.4-cm lesion in the right kidney. PLAN 1. The patient will need a cystoscopic examination. 2. Ongoing urological followup is a must. 3. Hematological abnormalities per the admitting physician. Thank you very much for allowing us to take care of your patient. Will be happy to follow him as an inpatient as needed and the patient will definitely need urological followup as an outpatient indefinitely. Job#: [id number] CQ cc:DR SUNNY MURRELL
--- NOTE | 2017-09-21 23:01 | Diagnostic Imaging Report ---
ADDENDUM #1 Dose modulation, iterative reconstruction, and/or weight based adjustment of the mA/kV was utilized to reduce the radiation dose to as low as reasonably achievable. Signed by: Dr. Farideh Flowers M.D. on 10/27/2017 5:35 AM ORIGINAL REPORT EXAM: CT ABDOMEN AND PELVIS with and without IV CONTRAST DATE: 09/21/2017 7:02 PM Time stamp on Exam: 2140 hours INDICATION: Right renal lesion seen on ultrasound COMPARISON: Right upper quadrant ultrasound September 21, 2017 TECHNIQUE: The abdomen and pelvis were scanned using a multidetector helical scanner. Coronal and sagittal reformations were obtained. CT renal mass protocol performed. IV Contrast: 100 cc Isovue-370 Oral Contrast: Water CTDIvol has been reviewed. It is below the limits set by the Radiation Protocol Committee (RPC). FINDINGS: RIGHT KIDNEY: * No nephroureterolithiasis. * The lesion seen on prior ultrasound corresponds to a 1.5 cm hyperdense cyst that does not enhance more than 10 HU post contrast. * No hydronephrosis. The calyces are sharp without filling defect. * Mild perinephric fat stranding. LEFT KIDNEY: * No nephroureterolithiasis. * No enhancing masses. * No hydronephrosis. The calyces are sharp without filling defect. * Mild perinephric fat stranding. BLADDER: Nonspecific circumferential bladder wall thickening. REPRODUCTIVE ORGANS: Unremarkable LOWER THORAX: Trace bilateral pleural effusions and bibasilar atelectasis. LIVER: No masses BILIARY: The gallbladder is unremarkable. No ductal dilatation. SPLEEN: No masses PANCREAS: No masses ADRENALS: No nodules GI TRACT: No distention, wall thickening or evidence of obstruction. Normal appendix. VESSELS: Unremarkable PERITONEUM/RETROPERITONEUM: Small amount of free pelvic fluid. LYMPH NODES: No lymphadenopathy SOFT TISSUES: Nonspecific lobulated 3 cm soft tissue density in the subcutaneous tissues of the right buttock, possibly an injection site or small hematoma. BONES: No suspicious bone lesions. Old right sixth rib fracture. Chronic appearing mild compression of the right superior endplate of L2. IMPRESSION: The right renal lesion seen on prior ultrasound corresponds to a hyperdense cyst. No enhancing renal masses. Nonspecific circumferential bladder wall thickening. Trace bilateral pleural effusions, mild bilateral perinephric fat stranding and small volume free fluid in the pelvis. Signed by: Dr. Farideh Flowers M.D. on 09/21/2017 10:58 PM
[2017-09-21] MEDS ORDERED: IOPAMIDOL 370 MG/ML 200 ML INFUS..BTL INJ ONE (23:02)
[2017-09-22] VITALS (7 sets, daily range): BP systolic 116–141; BP diastolic 66–88
[2017-09-22 04:59] LABS: BASOPHILS # (AUTO) 0.1 (0.0-0.1); BASOPHILS % 1.1 % (0.0-1.0); EOSINOPHILS # (AUTO) 0.2 (0.0-0.4); EOSINOPHILS % 3.7 % (0.0-6.0); HEMATOCRIT 32.7 % (38.2-49.6); HEMOGLOBIN 11.2 g/dL (14.0-18.0); LYMPHOCYTES # (AUTO) 1.2 (1.0-3.2); LYMPHOCYTES % 24.9 % (18.0-39.1); MEAN CORPUSCULAR HEMOGLOBIN 36.7 pg (28-32); MEAN CORPUSCULAR HGB CONC 34.3 g/dL (31-35); MEAN CORPUSCULAR VOLUME 107.2 fL (81-99); MONOCYTES # (AUTO) 0.8 (0.2-0.8); MONOCYTES % 18.1 % (4.4-11.3); NEUTROPHILS # (AUTO) 2.4 (2.1-6.9); NEUTROPHILS % 51.6 % (38.7-80.0); PLATELET COUNT 230 x10e3/uL (140-360); RED BLOOD COUNT 3.05 x10e6/uL (4.3-5.7); RED CELL DISTRIBUTION WIDTH 13.8 % (11.7-14.4)
[2017-09-22 05:23] LABS: ALANINE AMINOTRANSFERASE 56 IU/L (0-55); ALBUMIN 3.5 g/dL (3.5-5.0); ALBUMIN/GLOBULIN RATIO 1.1 (0.8-2.0); ALKALINE PHOSPHATASE 87 IU/L (40-150); BLOOD UREA NITROGEN 5 mg/dL (7-26); BUN/CREATININE RATIO 7 (6-25); CALCIUM 9.6 mg/dL (8.4-10.2); CARBON DIOXIDE 31 mmol/L (22-29); CHLORIDE 99 mmol/L (98-107); CREATININE, SERUM 0.73 mg/dL (0.72-1.25); EST GLOMERULAR FILTRATION RATE > 60 ML/MIN (60-); GLUCOSE 165 mg/dL (74-118); SODIUM 140 mmol/L (136-145)
[2017-09-22] MEDS: CLONIDINE HCL 0.1 MG TAB PO SCH ×3 (05:57→21:22)
[2017-09-22] MEDS: CHLORDIAZEPOXIDE HCL 25 MG CAP PO SCH ×2 (05:57→21:16)
[2017-09-22] MEDS: TRAMADOL HCL 50 MG TAB PO PRN ×2 (06:00→23:09)
[2017-09-22] MEDS ORDERED: SODIUM CHLORIDE 0.9% 50ML 100 ML ONE (07:47)
[2017-09-22] MEDS: FOLIC ACID 1 MG TAB PO SCH (09:00)
[2017-09-22] MEDS ORDERED: THIAMINE HCL INJ 100 MG/ML 2ML VIAL IV SCH ×2 (09:00)
[2017-09-22] MEDS: THIAMINE HCL INJ 100 MG in SODIUM CHLORIDE 0.9% 50ML 50 ML IV SCH (09:00)
[2017-09-22] MEDS: MELOXICAM 7.5 MG TAB PO SCH (09:00)
[2017-09-22] MEDS: BALSAM PERU/CASTOR OIL 60 GM OINT...G. TP SCH ×2 (09:00→17:00)
[2017-09-22] MEDS: LISINOPRIL 10 MG TAB PO SCH (09:00)
[2017-09-22] MEDS: NICOTINE 21 MG/EA PATCH TOP SCH (17:00)
[2017-09-23 04:29] LABS: BASOPHILS # (AUTO) 0.1 (0.0-0.1); BASOPHILS % 0.8 % (0.0-1.0); EOSINOPHILS # (AUTO) 0.3 (0.0-0.4); EOSINOPHILS % 4.2 % (0.0-6.0); HEMATOCRIT 31.9 % (38.2-49.6); LYMPHOCYTES # (AUTO) 1.7 (1.0-3.2); LYMPHOCYTES % 27.6 % (18.0-39.1); MEAN CORPUSCULAR HEMOGLOBIN 36.9 pg (28-32); MEAN CORPUSCULAR HGB CONC 34.5 g/dL (31-35); MONOCYTES # (AUTO) 0.8 (0.2-0.8); NEUTROPHILS # (AUTO) 3.4 (2.1-6.9); NEUTROPHILS % 53.6 % (38.7-80.0); PLATELET COUNT 248 x10e3/uL (140-360); RED BLOOD COUNT 2.98 x10e6/uL (4.3-5.7); RED CELL DISTRIBUTION WIDTH 13.6 % (11.7-14.4)
[2017-09-23 04:45] LABS: PROTHROMBIN TIME 12.4 seconds (11.9-14.5)
[2017-09-23 04:55] LABS: ALANINE AMINOTRANSFERASE 51 IU/L (0-55); ALBUMIN 3.3 g/dL (3.5-5.0); ALBUMIN/GLOBULIN RATIO 1.1 (0.8-2.0); ALKALINE PHOSPHATASE 94 IU/L (40-150); ANION GAP 12.1 mmol/L (8-16); BLOOD UREA NITROGEN 7 mg/dL (7-26); BUN/CREATININE RATIO 10 (6-25); CALCIUM 9.2 mg/dL (8.4-10.2); CARBON DIOXIDE 31 mmol/L (22-29); CHLORIDE 102 mmol/L (98-107); CREATININE, SERUM 0.69 mg/dL (0.72-1.25); EST GLOMERULAR FILTRATION RATE > 60 ML/MIN (60-); GLUCOSE 139 mg/dL (74-118); POTASSIUM 4.1 mmol/L (3.5-5.1); SODIUM 141 mmol/L (136-145)
[2017-09-23 05:20] VITALS: BP 118/82
[2017-09-23] MEDS: CLONIDINE HCL 0.1 MG TAB PO SCH (05:25)
[2017-09-23 08:00] VITALS: BP 133/72
[2017-09-23] MEDS ORDERED: SERTRALINE HCL 50 MG TAB PO SCH (09:00)
[2017-09-23] MEDS: THIAMINE HCL INJ 100 MG in SODIUM CHLORIDE 0.9% 50ML 50 ML IV SCH (09:22)
[2017-09-23] MEDS: LISINOPRIL 10 MG TAB PO SCH (09:22)
[2017-09-23] MEDS: BALSAM PERU/CASTOR OIL 60 GM OINT...G. TP SCH (09:22)
[2017-09-23] MEDS: MELOXICAM 7.5 MG TAB PO SCH (09:22)
[2017-09-23] MEDS: CHLORDIAZEPOXIDE HCL 25 MG CAP PO SCH (09:22)
[2017-09-23] MEDS: FOLIC ACID 1 MG TAB PO SCH (09:22)
[2017-09-23] MEDS ORDERED: IOPAMIDOL 300MG/ML 50ML INFUS..BTL IV ONE (11:04)
--- NOTE | 2017-09-23 13:58 | Progress Note ---
DATE: September 22, 2017 PSYCHIATRIC PROGRESS NOTE Patient evaluated and events noted. Patient is in the room. He is alert, awake and oriented to situation. He is anxious and depressed but denies any suicidal ideation. He denies any hallucination. He claims that he is sleeping intermittently. He denies any side effects of medication. ASSESSMENT: Alcohol withdrawal, resolved; adjustment disorder mixed mood. PLAN: 1. Add Zoloft 50 mg p.o. daily. 2. Reduce Librium to 25 mg p.o. b.i.d. 3. Continue with Haldol p.r.n. IM. 4. Continue with Seroquel p.r.n. p.o. 5. Monitor for mood. Dictated by: CHELY Dao Job#: [id number] EV
--- NOTE | 2017-09-23 14:09 | Discharge Summary ---
ADMIT DIAGNOSES 1. Witnessed tonic-clonic seizure. 2. Chronic alcoholism. 3. Tobacco abuse. DISCHARGE DIAGNOSES 1. Generalized tonic-clonic seizure secondary to acute alcohol withdrawal. 2. Acute alcohol withdrawal, resolved. 3. Chronic alcoholism. 4. Tobacco abuse. 5. Hypertensive heart disease. 6. Depression. 7. Acute psychosis secondary to acute alcohol withdrawal, resolved. HOSPITAL COURSE: This is a 47-year-old white man who has a history of chronic alcoholism. Patient was admitted to the hospital with a diagnosis of generalized tonic-clonic seizures secondary to acute alcohol withdrawal. The patient was seen by a neurologist during this hospitalization, namely Dr. Lazara Larose. Patient underwent an electroencephalogram during this hospitalization that did not reveal any epileptiform discharges, but it did reveal findings consistent with mild generalized encephalopathy. It was felt that patient's metabolic encephalopathy was secondary to acute alcohol withdrawal. Patient was also seen by a psychiatrist, Dr. Leyva, because of his acute psychosis secondary to alcohol withdrawal. The patient's acute psychosis was treated with intramuscular allopurinol as needed and oral Seroquel as needed. The patient's acute alcohol withdrawal symptoms improved with Librium 25 mg twice a day. Patient was started on lisinopril 10 mg daily for his hypertension. Patient did undergo a brain CT during this hospitalization that did not reveal any acute intracranial abnormality. The patient did undergo a liver ultrasound during this hospitalization that revealed hepatic steatosis and was otherwise unremarkable. Patient experienced gross hematuria during this hospitalization that resolved completely. This gross hematuria was thought to be secondary to traumatic Perkins catheter decannulation. Patient was seen by a urologist during this hospitalization, namely Dr. Snider, who performed a cystoscopy during this hospital stay. Results of the cystoscopy were not available on discharge. Patient's condition on discharge was stable. DISCHARGE MEDICATIONS 1. Lisinopril 10 mg daily. 2. Librium 25 mg p.o. b.i.d. for 15 more days. 3. Thiamine 100 mg daily, dispense 30. 4. Folic acid 1 mg b.i.d. , dispense 60. 5. Zoloft 50 mg daily. FOLLOWUP INSTRUCTIONS: Absolute alcohol abstinence was highly recommended to the patient. Patient was instructed to follow up with his primary care physician within the next 1 to 2 weeks. KRISTIE ACEVEDO MD Job#: [id number] EV
[2017-09-23] MEDS ORDERED: LIDOCAINE HCL 2% LOCAL INJ 5 ML SDV VIAL INJ ONE (17:38)
[2017-09-23] MEDS ORDERED: DEXAMETHASONE SOD PHOS INJ 4 MG/ML VIAL ONE (17:38)
[2017-09-23] MEDS ORDERED: PROPOFOL IV EMULSION 10 MG/ML 20 ML VIAL ONE (17:38)
[2017-09-23] MEDS ORDERED: ONDANSETRON HCL INJ 2 MG/ML VIAL ONE (17:38)
[2017-09-23] MEDS ORDERED: SEVOFLURANE INHAL SOLN 250 ML PEN BTL ONE (17:38)
[2017-09-23] MEDS ORDERED: CEFTRIAXONE SOD 1 GM VIAL ONE (17:38)
[2017-09-23] MEDS ORDERED: FENTANYL CITRATE/PF 100MCG/2 ML INJ ONE (17:42)
[2017-09-23] MEDS ORDERED: MIDAZOLAM HCL 2 MG/2 ML VIAL ONE (17:42)
--- NOTE | 2017-12-01 10:16 | Operative Report ---
DATE OF PROCEDURE: September 23, 2017 PREOPERATIVE DIAGNOSIS: Gross hematuria. POSTOPERATIVE DIAGNOSIS: Gross hematuria. PROCEDURES PERFORMED 1. Cystourethroscopy with bilateral ureteral catheterization and retrograde ureteropyelography. 2. Interpretation of retrograde ureteropyelography. 3. Supervision of fluoroscopy, no radiologist present. ANESTHESIA: General. COMPLICATIONS: None. CLINICAL SUMMARY: Please refer to hospitalization as well as the consult note from this hospitalization. Patient did have gross hematuria. OPERATIVE PROCEDURE IN DETAIL: Informed consent was verified. Jamey Trujillo was properly identified, taken to the operating room and placed on the cystoscopy table in the supine position. Anesthesia was uneventfully begun. The patient was then carefully and gently repositioned in the dorsal lithotomy position with all pressure points well padded. His genitalia were prepared and draped in the usual sterile fashion. The 22.5-Czech cystourethroscope sheath with the visual obturator in place was atraumatically inserted into the patient's urethra. It was guided down the normal distal urethra to the bulbar region where there was a significant amount of erythema there consistent with Perkins catheter trauma most consistent with the inflation of the Perkins balloon or the dislodging of the Perkins catheter balloon at the proximal urethra. The sphincteric region was intact. We went to the patient's prostate bed, which was unremarkable. We went to the patient's bladder, which exhibited grade-1 trabeculations. There were no tumors, no stones and no diverticula. No suspicious mucosal lesions were identified. A ureteral catheter was used to cannulate each ureter, and retrograde ureteropyelograms were performed. Interpretation of retrograde ureteropyelography: Contrast was instilled in a retrograde fashion bilaterally. There no tumors, no stones and no diverticula. Unobstructed drainage was observed bilaterally fluoroscopically. The patient's bladder was then drained. Cystoscope was withdrawn. Digital rectal examination revealed a 20-g prostate, smooth, nonfluctuant without any nodules. The patient was uneventfully reversed from anesthesia and taken to the recovery room in stable condition. There were no complications to the procedure. The patient tolerated the procedure well. Explicit postop instructions were given. The patient needs to follow up with a urologist upon his return to his home in [facility]. Job#: [id number]
== END 2017-09-23 14:58 | disposition home or self-care (01) | DRG 896 ==
LOC: FSED 09:52 → EDBD 09:52 → ERHOLD 12:08 → ICU 13:07 → MED/SURG2 09-18 12:06
PROC: 0T788ZZ Dilation of Bilateral Ureters, Via Natural or Artificial Opening Endoscopic (ICD-10-PCS; principal; 2017-09-23 07:30)
PROC: BT141ZZ Fluoroscopy of Kidneys, Ureters and Bladder using Low Osmolar Contrast (ICD-10-PCS; principal; 2017-09-23 07:30)
DX: F10.231 Alcohol dependence with withdrawal delirium (principal); G92 Toxic encephalopathy; G40.89 Other seizures; S37.39XA Other injury of urethra, initial encounter; D61.818 Other pancytopenia; Q54.1 Hypospadias, penile; Z78.1 Physical restraint status; F17.210 Nicotine dependence, cigarettes, uncomplicated; I11.9 Hypertensive heart disease without heart failure; F32.9 Major depressive disorder, single episode, unspecified; F10.259 Alcohol dependence with alcohol-induced psychotic disorder, unspecified; Y90.0 Blood alcohol level of less than 20 mg/100 ml; T51.0X1A Toxic effect of ethanol, accidental (unintentional), initial encounter; K70.0 Alcoholic fatty liver; K70.10 Alcoholic hepatitis without ascites
CPT/HCPCS: 36415; 70450; 74178; 74420; 76705; 80048; 80053; 80307; 80320; 81001; 82140; 82390; 82607; 82728; 83540; 83735; 84100; 84132; 84425; 84436; 84443; 84479; 85025; 85610; 85730; 86039; 86255; 86592; 93005; 95812; 96360; 96361; 96365; 96366; 96374; 96376; 97139; 99284; J0696; J1100; J1630; J1885; J2001; J2060; J2250; J2270; J2405; J3411; J7030; Q9967